=== PATIENT | male | born 1980 | race Two or more races ===

== ENCOUNTER 2021-12-26 10:46 | Outpatient (CLI) | payer OTHER | END 2021-12-26 10:49 | disposition home or self-care (01) | LOC: SONOGRAMA 10:46 | PROVIDERS: ATTEND Pathology Anatomic Pathology & Clinical Pathology | DX: E04.2 Nontoxic multinodular goiter (principal); E06.3 Autoimmune thyroiditis; D34 Benign neoplasm of thyroid gland ==